=== PATIENT | female | born 1995 | race Caucasian/White ===

== ENCOUNTER 2023-10-07 13:03 | Observation (INO) | payer BC, SELFPAY ==
[~2023-10-07] VITALS: Ht 175.3 cm; Wt 85.7 kg
[2023-10-07 13:19] VITALS: BP 119/84; PULSE 98; RESP 20
[2023-10-07] MEDS: LACTATED RINGERS 1000ML 1,000 ML IV SCH (13:45)
[2023-10-07 14:29] LABS: APPEARANCE,URINE CLOUDY (CLEAR); BILIRUBIN,URINE NEGATIVE (NEGATIVE); COLOR,URINE LIGHT-ORANGE (YELLOW); GLUCOSE, URINE (UA) NEGATIVE (NEGATIVE); KETONES,URINE NEGATIVE (NEGATIVE); LEUKOCYTE ESTERASE ,URINE 75 Leu/uL (NEGATIVE); NITRATE,URINE NEGATIVE (NEGATIVE); OCCULT BLOOD,URINE LARGE (NEGATIVE); PROTEIN,URINE 10 mg/dL (NEGATIVE); UROBILINOGEN,URINE 0.2 mg/dL (0.2-1.0)
[2023-10-07 14:36] LABS: ADD UA MICROSCOPIC YES
[2023-10-07 14:38] LABS: BACTERIA,URINE RARE /HPF (None Seen); RBC,URINE >100 /HPF (0-1); SQUAMOUS EPITHELIAL CELL,UR FEW /HPF (0-2)
[2023-10-07] MEDS ORDERED: ACETAMINOPHEN 325 MG TAB PO PRN (15:00)
[2023-10-07] MEDS: CEFTRIAXONE 1G VIAL IVPB SCH (15:12)
== END 2023-10-07 18:15 | disposition home or self-care (01) ==
LOC: EDH 13:03 → LDH 13:04
PROVIDERS: ADMIT Obstetrics & Gynecology; ATTEND Obstetrics & Gynecology
DX: O26.893 Other specified pregnancy related conditions, third trimester (principal); R10.30 Lower abdominal pain, unspecified; M54.9 Dorsalgia, unspecified; Z3A.29 29 weeks gestation of pregnancy
CPT/HCPCS: 96365; 96366; 59025; 96361; 87088; 81001; 76770; G0378 ×5; G0379; J0696; 96360

== ENCOUNTER 2023-10-08 15:27 | Observation (INO) | payer BC ==
[~2023-10-08] VITALS: Ht 175.3 cm; Wt 85.3 kg
[2023-10-08 15:32] VITALS: BP 113/66; PULSE 88; RESP 18
[2023-10-08] MEDS: CEFTRIAXONE 1G VIAL IM ONE (16:23)
== END 2023-10-08 16:45 | disposition home or self-care (01) ==
LOC: EDH 15:27 → LDH 15:41
PROVIDERS: ADMIT Obstetrics & Gynecology; ATTEND Obstetrics & Gynecology
DX: Z36.89 Encounter for other specified antenatal screening (principal); Z3A.30 30 weeks gestation of pregnancy
CPT/HCPCS: 96372; G0379; G0378; J0696; 59025